=== PATIENT | female | born 1955 | race Caucasian/White ===

== ENCOUNTER 2017-07-24 13:06 | Emergency (ER) | payer OTHER ==
[~2017-07-24] VITALS: Ht 167.6 cm; Wt 65.4 kg
[2017-07-24 13:22] VITALS: BP 129/81
--- NOTE | 2017-07-24 14:03 | NUR ---
PATIENT PRESENTS TO ED WITH C/O LEFT ARM NUMBNESS X 2 DAYS---DENIES INJURY, FULL ROM, FULL CLEAR SPEECH, DENIES RAMIREZ, NO FACIAL ASYMMETRY NOTED, AMBULATORY WITH STEADY GAIT, NO DRIFT NOTED SEEN AT [facility] FOR LEFT SIDE FACE NUMBNESS/CP TRANSFERED TO [facility] DX TIA ADMITTED THURSDAY DC THURSDAY HX---TIA 07/22/2017 RX---ASA 81MG . DENIES N/V/D; SKIN IS PINK/WARM/DRY; AAOX4 WITH EVEN AND STEADY GAIT; LUNGS CLEAR BL; HR EVEN AND REGULAR; PT DENIES ANY FEVER, CP, SOB, OR COUGH AT THIS TIME; PATIENT STATES PAIN OF 0/10 AT THIS TIME; VSS; PATIENT POSITIONED FOR COMFORT; HOB ELEVATED; BEDRAILS UP X2; BED DOWN. ER MD MADE AWARE OF PT STATUS.
--- NOTE | 2017-07-24 15:20 | NUR ---
PT RESTING COMFORTABLY ON BED, NO ACUTE DISTRESS NOTED AT THIS TIME, WILL CONTINUE TO MONITOR
--- NOTE | 2017-07-24 15:33 | NUR ---
DR DESAI EVALUATING AAO PT AT BEDSIDE
[2017-07-24 16:13] VITALS: BP 121/64
== END 2017-07-24 16:13 | disposition home or self-care (01) ==
LOC: MED 13:06
DX: R20.0 Anesthesia of skin (principal)
CPT/HCPCS: 81002; 99283

== ENCOUNTER 2023-03-10 14:18 | Emergency (ER) | payer OTHER ==
[~2023-03-10] VITALS: Ht 162.6 cm; Wt 69.4 kg
[2023-03-10 14:40] VITALS: BP 151/73
--- NOTE | 2023-03-10 15:06 | NUR ---
TO BED 1 VIA WC. NO ACUTE DISTRESS
[2023-03-10 15:44] LABS: BASOPHILS % (AUTO) 0.5 % (0.0-2.0); EOSINOPHILS % (AUTO) 0.6 % (0.0-4.0); HEMATOCRIT 38.8 % (36-48); HEMOGLOBIN 12.7 g/dL (12.0-16.0); LYMPHOCYTES # (AUTO) 0.8 K/uL (2.5-16.5); LYMPHOCYTES % (AUTO) 9.5 % (20.5-51.1); MEAN CORPUSCULAR HEMOGLOBIN 30 pg (27-31); MEAN CORPUSCULAR HGB CONC 33 g/dL (33-37); MEAN CORPUSCULAR VOLUME 90.5 fL (80-94); MONOCYTES # (AUTO) 0.3 K/uL (0.8-1.0); MONOCYTES % (AUTO) 3.9 % (1.7-9.3); NEUTROPHILS # (AUTO) 7.1 K/uL (1.8-7.7); NEUTROPHILS % (AUTO) 85.5 % (42.2-75.2); PLATELET COUNT (AUTO) 283 K/uL (140-450); RED BLOOD CELL COUNT(AUTO) 4.29 MIL/uL (4.20-5.40); RED CELL DISTRIBUTION WIDTH 13.8 % (11.6-13.7); WHITE BLOOD COUNT (AUTO) 8.4 K/uL (4.8-10.8)
--- NOTE | 2023-03-10 15:52 | NUR ---
67 yo/f biba from home w c/o n/v, dizzy/lightheaded and was told by a hotline to come to ER d/t irregular heart beat. pt reports only 1 episode of emesis no blood. pt denies nausea at this time, or ongoing dizziness. pt denies any chest pain or sob. pmh: denies allergies: denies
[2023-03-10 16:17] LABS: LIPASE 169 U/L (73-393); MAGNESIUM 1.7 mg/dL (1.8-2.4); PHOSPHORUS 3.7 mg/dL (2.5-4.9); THYROID STIMULATING HORMONE 0.79 uIU/mL (0.34-3.74)
[2023-03-10 16:21] LABS: ALBUMIN 3.9 g/dL (3.4-5.0); ANION GAP 11.6 (8-16); CARBON DIOXIDE 29.6 mmol/L (21-32); CREATININE 0.8 mg/dL (0.6-1.3); POTASSIUM 4.2 mmol/L (3.5-5.1); TOTAL BILIRUBIN 0.4 mg/dL (0.0-1.0)
--- NOTE | 2023-03-10 16:50 | NUR ---
PT AMBULATORY TO BATHROOM W STEADY GAIT, ASYMPTOMATIC.
[2023-03-10 17:52] LABS: BILIRUBIN,URINE NEGATIVE (NEGATIVE); BLOOD, URINE NEGATIVE (NEGATIVE); LEUKOCYTE ESTERASE ,URINE 1+ (NEGATIVE); NITRITE, URINE NEGATIVE (NEGATIVE); UGLUCOSE NEGATIVE (NEGATIVE)
[2023-03-10 18:05] LABS: APPEARANCE,URINE HAZY (CLEAR)
[2023-03-10 18:30] LABS: RBC,URINE NONE SEEN /HPF (0-5)
[2023-03-10 18:31] LABS: COLOR,URINE STRAW (YELLOW)
[2023-03-10 18:55] VITALS: BP 110/77
--- NOTE | 2023-03-10 18:56 | NUR ---
Patient discharged with v/s stable. Written and verbal after care instructions given and explained. Patient verbalized understanding. Ambulatory with steady gait. All questions addressed prior to discharge. Advised to follow up with PMD.
== END 2023-03-10 18:50 | disposition home or self-care (01) ==
LOC: MED 14:18
DX: R42 Dizziness and giddiness (principal); R11.10 Vomiting, unspecified
CPT/HCPCS: 36415; 71045; 80053; 81001; 83690; 83735; 83880; 84100; 84443; 84484; 85025; 85379; 87086; 93005; 99285